=== PATIENT | female | born 1985 | race Caucasian/White ===

== ENCOUNTER 2018-05-28 04:24 | Emergency (ER) | payer OTHER ==
[~2018-05-28] VITALS: Ht 170.2 cm; Wt 68.0 kg
[2018-05-28 04:33] VITALS: BP_SYST 145
--- NOTE | 2018-05-28 05:43 | NUR ---
Pt c/o Right wrist pain since Sunday, progressively worsening. Pt states that she thinks she may have picked up her son the wrong way while at the [facility] this past Sunday. Mild swelling noted to lateral right wrist, no deformities noted. Pt able to open and close hand, wiggle fingers without difficulty, but more painful when attempting to move hand from side to side about wrist. No bruising or obvious trauma noted. Cap refil < 3 sec to nail beds.
--- NOTE | 2018-05-28 05:43 | NUR ---
0543 - Patient to ER bed 6 for evaluation. Side rails up. Report given to ALBERTA Del Rio.
--- NOTE | 2018-05-28 05:55 | NUR ---
Dr. Suh at bedside.
[2018-05-28] MEDS ORDERED: KETOROLAC TROMETHAMINE 30 MG VIAL IM ONE (07:00)
--- NOTE | 2018-05-28 07:20 | NUR ---
Velcro wrist splint applied to Right wrist, non-constrictive, cap refil < 3 sec to nail beds.
[2018-05-28 07:24] VITALS: BP_SYST 128
--- NOTE | 2018-05-28 07:25 | NUR ---
Patient given written and verbal discharge instructions and verbalizes understanding. ER MD discussed with patient the results and treatment provided. Patient in stable condition. ID arm band removed. Rx of Motrin given. Patient educated on pain management and to follow up with PMD. Pain Scale 4/10, medicated prior to discharge. Opportunity for questions provided and answered. Medication side effect fact sheet provided.
== END 2018-05-28 07:25 | disposition home or self-care (01) ==
LOC: SED 04:24
DX: M65.4 Radial styloid tenosynovitis [de Quervain] (principal); X50.0XXA Overexertion from strenuous movement or load, initial encounter; Y93.89 Activity, other specified; Y92.89 Other specified places as the place of occurrence of the external cause; Y99.8 Other external cause status
CPT/HCPCS: 29125; 73110; 96372; 99283; J1885

== ENCOUNTER 2021-07-06 12:38 | Inpatient (IN) | payer BC, MEDICAID, SELFPAY ==
[~2021-07-06] VITALS: Ht 170.2 cm; Wt 86.2 kg
--- NOTE | 2021-07-06 13:02 | NUR ---
Patient to ER bed 02 to gown for evaluation. Side rails up.
[2021-07-06 13:03] VITALS: BP_SYST 149
--- NOTE | 2021-07-06 13:10 | NUR ---
MD OBRIEN AT BEDSIDE WITH PATIENT.
--- NOTE | 2021-07-06 13:20 | NUR ---
patient AAOx4 c/o epigastric pain since 299 today. stating having some nausea. denies any changes in her diet. remains afebrile. denies any SOB or CP. abdomen soft and non-tender.
[2021-07-06] MEDS ORDERED: ONDANSETRON HCL 4 MG/2 ML VIAL IVP ONE (13:30)
[2021-07-06] MEDS ORDERED: NACL 0.9% 1,000 ML IV ONE (13:30)
[2021-07-06] MEDS ORDERED: PANTOPRAZOLE SODIUM 40 MG/VIAL (PROTONIX) IVP ONE (13:30)
[2021-07-06 13:39] LABS: BILIRUBIN,URINE NEGATIVE (NEGATIVE); BLOOD, URINE 1+ (NEGATIVE); CLARITY/URINE CLEAR (CLEAR); COLOR,URINE YELLOW (YELLOW); GLUCOSE,URINE NEGATIVE (NEGATIVE); KETONES,URINE NEGATIVE (NEGATIVE); LEUKOCYTE ESTERASE ,URINE NEGATIVE (NEGATIVE); NITRITE, URINE NEGATIVE (NEGATIVE); PH,URINE 6.5 (5.0-8.0); PROTEIN URINE NEGATIVE (NEGATIVE); UROBILINOGEN,URINE 0.2 (0.2-1.0)
[2021-07-06 13:53] LABS: BASOPHILS # (AUTO) 0.1 K/uL (0.0-0.2); BASOPHILS % (AUTO) 0.5 % (0.0-2.0); LYMPHOCYTES # (AUTO) 0.5 K/uL (1.0-5.5)
[2021-07-06 13:56] LABS: HEMATOCRIT 45.9 % (36-48); HEMOGLOBIN 16.2 g/dL (12.0-16.0); LYMPHOCYTES % (AUTO) 3.7 % (20.5-51.5); MEAN CORPUSCULAR HEMOGLOBIN 35 pg (27-31); MEAN CORPUSCULAR HGB CONC 35 % (32-36); MEAN CORPUSCULAR VOLUME 99 fL (79.0-98.0); MONOCYTES # (AUTO) 0.4 K/uL (0.0-1.0); MONOCYTES % (AUTO) 3.5 % (1.7-9.3); NEUTROPHILS # (AUTO) 11.2 K/uL (1.8-7.7); NEUTROPHILS % (AUTO) 92.3 % (40.0-70.0); RED BLOOD CELL COUNT(AUTO) 4.64 MIL/uL (4.2-6.2); RED CELL DISTRIBUTION WIDTH 12.9 % (9.0-15.0); WHITE BLOOD COUNT (AUTO) 12.1 K/uL (4.8-10.8)
[2021-07-06 14:09] LABS: PLATELET COUNT (AUTO) 184 K/uL (130-430)
[2021-07-06 14:13] LABS: WBC,URINE 0-3 /HPF (0-3)
[2021-07-06 14:14] LABS: BACTERIA,URINE FEW /HPF (None Seen)
[2021-07-06] MEDS ORDERED: MORPHINE 4 MG INJ. 4 MG/ML VIAL IVP ONE (14:15)
[2021-07-06 14:57] LABS: CALCIUM 7.9 mg/dL (8.4-11.0); CREATININE 1.01 mg/dL (0.55-1.30); POTASSIUM 3.8 mmol/L (3.5-5.1)
[2021-07-06 15:02] LABS: ALBUMIN 3.3 g/dL (3.4-4.8)
[2021-07-06] MEDS ORDERED: MORPHINE 4 MG INJ. 4 MG/ML VIAL IVP PRN (16:00)
--- NOTE | 2021-07-06 16:06 | NUR ---
Patient will be admitted to [facility]. Admitted to Tele unit. Will go to room pending room assignment.
--- NOTE | 2021-07-06 16:07 | NUR ---
Admit bed requested Patient will be admitted to care of Dr. CORTEZ. Admitted to TELE unit. Diagnosis ABDOMINAL PAIN AND PANCREATITIS Inpatient (Yes or No) YES Observation (Yes or No) NO Orientation concerns or request close to nursing station (Yes or No) NO Covid Status PENDING On vent or bipap NO Isolation requirements NO Needs a sitter NO From Home (Yes or if No enter name of facility) YES Requires Dialysis (Yes or No) NO Med Rec Completed (Yes of No) YES
[2021-07-06] MEDS: MORPHINE 4 MG INJ. 4 MG/ML VIAL IVP PRN (16:36)
--- NOTE | 2021-07-06 16:58 | NUR ---
BELONGINGS DONE AT BEDSIDE WITH PATIENT AND EMT.
--- NOTE | 2021-07-06 16:58 | NUR ---
PATIENT TAKES NO HOME MEDICATIONS.
[2021-07-06] MEDS: ONDANSETRON HCL 4 MG/2 ML VIAL IVP PRN (17:41)
--- NOTE | 2021-07-06 17:47 | NUR ---
Transfer to TELE via ACLS protocol. Licensed nurse present. IV present no signs or symptoms of infiltration.
[2021-07-06] MEDS ORDERED: cefTRIAXone 1 GM IVPB PREMIX 50 ML IV SCH (18:00)
[2021-07-06 18:30] VITALS: BP_SYST 140
[2021-07-06 18:54] VITALS: BP_SYST 140
[2021-07-06 18:57] VITALS: BP_SYST 140
[2021-07-06] MEDS ORDERED: cefTRIAXone 1 GM IVPB PREMIX 100 ML IV ONE (21:44)
--- NOTE | 2021-07-06 23:50 | NUR ---
CONSULT: CONSULT CALLED FOR DR. BARBARA FALCON CARTON FILLING MACHINE OPERATOR THIS MORNING I SPOKE WITH BELA PATEL REASON FOR CONSULT: PANCREATITIS REQUESTING CONSULT: DR. CORTEZ ETL DEVELOPER PHONE NUMBER: [phone]
[2021-07-07 00:57] VITALS: BP_SYST 135
[2021-07-07] MEDS: D5/0.45 NS 1,000 ML IV SCH ×2 (04:36→12:15)
[2021-07-07 06:13] LABS: BASOPHILS % (AUTO) 0.5 % (0.0-2.0); EOSINOPHILS % (AUTO) 0.2 % (0.0-4.0); HEMATOCRIT 44.8 % (36-48); LYMPHOCYTES # (AUTO) 0.6 K/uL (1.0-5.5); LYMPHOCYTES % (AUTO) 7.5 % (20.5-51.5); MEAN CORPUSCULAR HEMOGLOBIN 34 pg (27-31); MEAN CORPUSCULAR HGB CONC 34 % (32-36); MEAN CORPUSCULAR VOLUME 100 fL (79.0-98.0); MONOCYTES # (AUTO) 0.3 K/uL (0.0-1.0); MONOCYTES % (AUTO) 3.1 % (1.7-9.3); NEUTROPHILS # (AUTO) 7.3 K/uL (1.8-7.7); NEUTROPHILS % (AUTO) 88.7 % (40.0-70.0); PLATELET COUNT (AUTO) 109 K/uL (130-430); RED BLOOD CELL COUNT(AUTO) 4.47 MIL/uL (4.2-6.2); RED CELL DISTRIBUTION WIDTH 13.3 % (9.0-15.0); WHITE BLOOD COUNT (AUTO) 8.3 K/uL (4.8-10.8)
[2021-07-07 06:42] LABS: CREATININE 0.99 mg/dL (0.55-1.30); POTASSIUM 3.3 mmol/L (3.5-5.1)
[2021-07-07 06:49] LABS: ALBUMIN 2.7 g/dL (3.4-4.8); TOTAL BILIRUBIN 0.9 mg/dL (0.0-1.0)
[2021-07-07 08:00] VITALS: BP_SYST 124
--- NOTE | 2021-07-07 08:00 | NUR ---
CRITICAL LAB RESULTS CALCIUM LEVEL 6.8 PRIMARY MD MADE AWARE.
[2021-07-07] MEDS: MORPHINE 2 MG/ML INJ. SYRINGE IVP PRN ×2 (08:30→16:28)
[2021-07-07] MEDS: ONDANSETRON HCL 4 MG/2 ML VIAL IVP PRN ×2 (08:42→20:56)
[2021-07-07 09:12] LABS: CALCIUM 6.8 mg/dL (8.4-11.0)
--- NOTE | 2021-07-07 10:30 | NUR ---
CRITICAL LAB RESULT LIPASE 3780 DECREASING AT THIS TIME,
--- NOTE | 2021-07-07 11:29 | NUR ---
CALLED IN REGARDS PT SCHEDULED FOR MRI TODAY,
--- NOTE | 2021-07-07 11:30 | NUR ---
PT ON MENSTRUAL CYCLE AT THIS TIME, PT SURE SHE IS NOT ,
--- NOTE | 2021-07-07 11:32 | NUR ---
PT SCHEDULED FOR TEST
[2021-07-07] MEDS ORDERED: HYDROmorphone 1 MG/ML INJ. CARTRIDGE IM PRN (12:30)
--- NOTE | 2021-07-07 13:00 | NUR ---
REGISTERED NURSE CARDIAC TELEMETRY AT BEDSIDE TO TRANSPORT PT TO RADIOLOGY DEPT.
--- NOTE | 2021-07-07 13:59 | NUR ---
PT RETURNED FROM MRI DEPT.
[2021-07-07] MEDS ORDERED: DIATR MEGLU/DIATRIZ SOD 30 ML SOLUTION PO ONE (15:12)
[2021-07-07 16:00] VITALS: BP_SYST 147
--- NOTE | 2021-07-07 19:00 | NUR ---
OPENING NOTES RECEIVED PATIENT RESTING, NO SIGNS OF PAIN AT THIS TIME. CALL LIGHT WITHIN REACH, PATIENT ABLE TO DEMONSTRATE CALL LIGHT USAGE, BED ALARM REFUSED AT THIS TIME, BED ALARM TEACHING PROVIDED, BED AT LOWEST POSITION, BED LOCKED. FALL, SAFETY, ASPIRATION, AND RESPIRATORY PRECAUTIONS IN PLACE. DISCUSSED PLAN OF CARE WITH PATIENT. WILL CONTINUE TO MONITOR.
--- NOTE | 2021-07-07 19:30 | NUR ---
PT STABLE VSS NO DISTRESS NOTED, PT SLEEPING ON INTERVALS PT CALM
[2021-07-07 20:00] VITALS: BP_SYST 127
[2021-07-07] MEDS: cefTRIAXone 1 GM IVPB PREMIX 50 ML IV SCH (20:56)
--- NOTE | 2021-07-07 22:00 | NUR ---
TRANSFER OF CARE SBAR PROVIDED TO ALBERTA COURTNEY. CALL LIGHT WITHIN REACH, BED AT LOWEST POSITION. BED LOCKED.
--- NOTE | 2021-07-07 22:00 | NUR ---
[facility] of care Received report sandra Hartley RN via SBAR. Resting quietly alert & oriented. No c/o pain or discomfort. Able to use call light if in need of assistance. Bed in low, locked position.
[2021-07-08 00:46] VITALS: BP_SYST 120
[2021-07-08] MEDS: MORPHINE 4 MG INJ. 4 MG/ML VIAL IVP PRN ×3 (00:55→15:21)
--- NOTE | 2021-07-08 01:00 | NUR ---
Pain. C/O headache 11/16. VSS. Morphine IV given as ordered. Instructed to call for assistance if needed and not to ambulate if unsteady. Verbalized understanding. Call light within reach.
[2021-07-08 01:13] VITALS: BP_SYST 120
[2021-07-08] MEDS: D5/0.45 NS 1,000 ML IV SCH (03:56)
--- NOTE | 2021-07-08 04:40 | NUR ---
Sleeping quietly, no apparent distress. No c/o pain or discomfort. No respiratory distress noted. Call light within reach.
[2021-07-08 07:11] LABS: BASOPHILS % (AUTO) 0.4 % (0.0-2.0); EOSINOPHILS # (AUTO) 0.1 K/uL (0.0-0.4); EOSINOPHILS % (AUTO) 0.9 % (0.0-4.0); HEMATOCRIT 40.3 % (36-48); HEMOGLOBIN 13.5 g/dL (12.0-16.0); LYMPHOCYTES # (AUTO) 0.7 K/uL (1.0-5.5); LYMPHOCYTES % (AUTO) 8.4 % (20.5-51.5); MEAN CORPUSCULAR HEMOGLOBIN 33 pg (27-31); MEAN CORPUSCULAR HGB CONC 34 % (32-36); MEAN CORPUSCULAR VOLUME 100 fL (79.0-98.0); MONOCYTES # (AUTO) 0.3 K/uL (0.0-1.0); MONOCYTES % (AUTO) 4.1 % (1.7-9.3); NEUTROPHILS # (AUTO) 6.9 K/uL (1.8-7.7); NEUTROPHILS % (AUTO) 86.2 % (40.0-70.0); PLATELET COUNT (AUTO) 97 K/uL (130-430); RED BLOOD CELL COUNT(AUTO) 4.04 MIL/uL (4.2-6.2); RED CELL DISTRIBUTION WIDTH 13.5 % (9.0-15.0)
--- NOTE | 2021-07-08 07:32 | NUR ---
Closing note. Resting quietly, no apparent distress. No c/o of pain or discomfort. Able to ambulate to bathroom without assist. Call light within reach. Will give report to oncoming shift RN.
[2021-07-08 08:00] VITALS: BP_SYST 115
[2021-07-08 08:19] LABS: ALBUMIN 2.2 g/dL (3.4-4.8); CREATININE 0.75 mg/dL (0.55-1.30); POTASSIUM 3.2 mmol/L (3.5-5.1)
[2021-07-08 11:28] VITALS: BP_SYST 112
--- NOTE | 2021-07-08 13:07 | NUR ---
HIGH ALERT NOTE: Called Dr. CORTEZ back at [phone] identified within the medical roster to verify physician authenticity.
[2021-07-08] MEDS ORDERED: POTASSIUM CHLORIDE 40 MEQ, LIDOCAINE JECT 2% PF 100 MG 50 MG in NS 250 ML IV ONE (14:00)
[2021-07-08 15:38] VITALS: BP_SYST 120
--- NOTE | 2021-07-08 20:02 | NUR ---
Received pt lying in bed aaox4, no distress noted, denies pain. VSS Addendum: 07/09/21 at 0714 by [facility] acoustical engineer [id number]: PT LYING IN BED, NO DISTRESS NOTED, DENIES PAIN. UNEVENTFUL SHIFT.
[2021-07-08] MEDS: cefTRIAXone 1 GM IVPB PREMIX 50 ML IV SCH (22:04)
[2021-07-08 23:27] VITALS: BP_SYST 114
[2021-07-09] MEDS: MORPHINE 4 MG INJ. 4 MG/ML VIAL IVP PRN (02:35)
[2021-07-09 04:30] VITALS: BP_SYST 116
[2021-07-09] MEDS: D5/0.45 NS 1,000 ML IV SCH (07:56)
--- NOTE | 2021-07-09 07:56 | NUR ---
rn opening note report was endorsed by night nurse. patient is awake and alert sitting up in bed. no complaints at this time. states her abdominal pain is better just swollen. patient is still npo. patient educated rehabilitation physician light for assistance. call light is with her. patient has no other needs at this time.
[2021-07-09 07:59] VITALS: BP_SYST 129
[2021-07-09 09:03] LABS: HCG,QUAL RESULT NEGATIVE (NEGATIVE)
[2021-07-09] MEDS ORDERED: NALOXONE HCL 0.4 MG/ML AMP (NARCAN) IVP PRN (09:30)
--- NOTE | 2021-07-09 10:00 | NUR ---
rn rounding patient is sitting up in bed, no complaints at this time. call light is with her. educated to use for assistance. no other needs at this time.
[2021-07-09 11:21] VITALS: BP_SYST 118
--- NOTE | 2021-07-09 11:50 | NUR ---
Dr. Carrington spoke with md orders were received
[2021-07-09] MEDS: ACETAMINOPHEN 325 MG TABLET PO PRN ×2 (13:09→20:39)
--- NOTE | 2021-07-09 13:10 | NUR ---
headache Addendum: 07/09/21 at 1416 by Crystal Maharaj RN patient complains of head ache medicated per order. patient educated vice president industrial relations light for assistance. call light is with her. patient has no other needs at this time. patient states she was able to eat just feels like she ate too fast.
--- NOTE | 2021-07-09 15:11 | NUR ---
RN ROUNDING PATIENT STATES SHE HAS A HAD BOWEL MOVEMENT, NO ABDOMINAL PAIN. TOLERATED LUNCH WELL. OK TO ADVANCE DIET PER ORDER. PATIENT HAS CALL LIGHT WITH HER EDUCATED TO USE FOR ASSISTANCE. NO OTHER NEEDS AT THIS TIME.
[2021-07-09 15:21] VITALS: BP_SYST 129
--- NOTE | 2021-07-09 19:33 | NUR ---
rn closing note report was endorsed to night nurse. patient ate dinner has no complaints at this time. call light is with her. educated to use for assistance. patient does not complain of nausea, no pain at this time.
[2021-07-09 20:00] VITALS: BP_SYST 138
[2021-07-09 20:10] VITALS: BP_SYST 138
--- NOTE | 2021-07-09 20:10 | NUR ---
PM ASSESSMENT -pt is a/ox4, laying in bed comfortably. VSS. Pt denies any pain,sob,or any acute distress. IVF infusing well, no s/s any infiltration noted. Discussed poc,all safety measures, pt verbalized understanding. Call light w/in reach. All safety measure in place. Continuing to monitor pt.
[2021-07-09] MEDS: cefTRIAXone 1 GM IVPB PREMIX 50 ML IV SCH (20:39)
--- NOTE | 2021-07-09 20:39 | NUR ---
PAIN MGMT -Pt is c/o headache,gave Tylenol po upon pt's request. Will reassess pain level w/in an hour. Continuing to monitor pt.
--- NOTE | 2021-07-09 21:39 | NUR ---
REASSESSMENT OF PAIN -pt is laying in bed comfortably.IVF infusing well, no s/s any infiltration. No s/s any pain,sob,or any acute distress noted. Call light w/in reach. All safety measures in place. Continuing to monitor pt.
[2021-07-09] MEDS: ONDANSETRON HCL 4 MG/2 ML VIAL IVP PRN (23:57)
--- NOTE | 2021-07-09 23:57 | NUR ---
ROUNDS; -pt is denies pain,sob except cramping of abdomen. Gave Zofran 4mg IVP upon pt's request. VSS. Call light w/in reach. All safety measures in place. Continuing to monitor pt.
[2021-07-10] VITALS: BP_SYST 139
[2021-07-10] MEDS: D5/0.45 NS 1,000 ML IV SCH (02:07)
[2021-07-10] MEDS: HYDROcodone/ACETAMIN 5-325 MG TAB (NORCO/ VICODIN) PO PRN ×2 (02:07→09:45)
--- NOTE | 2021-07-10 02:07 | NUR ---
ROUNDS & PAIN MGMT -pt is crying and c/o abdominal pain 10/10,gave [place] 5/325mg po upon pt's request. Pt refused to take Morphine IVP. Call light w/in reach. All safety measures in place. Will reassess pain level w/in 1 hr and continuing to monitor pt.
--- NOTE | 2021-07-10 04:10 | NUR ---
ROUNDS; -Pt is asleep, no s/s any pain or any acute distress noted. IVF infusing well. Call light w/in reach. All safety measures in place. Continuing to monitor pt
--- NOTE | 2021-07-10 06:54 | NUR ---
CLOSING NOTES; -Pt awoke upon making final rounds. Pt stated that [place] po helped her pain much better than Tylenol po for pain mgmt. IV site patent, no s/s any infiltration noted. IVF infusing well. Call light w/in reach. All safety measures in place. Will endorse to next nurse to cont care.
[2021-07-10 08:00] VITALS: BP_SYST 143
[2021-07-10 11:28] VITALS: BP_SYST 139
[2021-07-10 14:00] VITALS: BP_SYST 140
--- NOTE | 2021-07-10 14:52 | NUR ---
Obtained order to d/c pt home, pt ambulating in the room, tolerating soft diet well, norco 1 tab given early with good response. Reviewed d/c instructions and pt verbalized understanding. d/c 'd iv site. all belongings given to pt. VSS. prescription to be called in by Dr Carrington to pt's [facility] pharmacy per Dr Carrington. pt verbalized understanding of prescription. escorted out via wheelchair.
--- NOTE | 2021-07-10 16:38 | NUR ---
prescription Dr Carrington can only do electronic prescription for [facility] tomorrow 07/11 at 10am. Patient called and notified and advised patient if symptom persist, to seek medical help
[2021-07-11 08:06] LABS: ANTI NUCLEAR AB WITH REFLEX Negative (Negative)
== END 2021-07-10 15:05 | disposition home or self-care (01) | DRG 440 ==
LOC: SED 12:38 → STU 16:10 → SMU 07-08 12:52
PROVIDERS: ADMIT Internal Medicine; ATTEND Internal Medicine
DX: K85.90 Acute pancreatitis without necrosis or infection, unspecified (principal); Z20.822 Contact with and (suspected) exposure to COVID-19; F10.20 Alcohol dependence, uncomplicated; K59.00 Constipation, unspecified; Z80.3 Family history of malignant neoplasm of breast; Z79.899 Other long term (current) drug therapy; Z56.0 Unemployment, unspecified
CPT/HCPCS: 36415; 74181; 76376; 76700-TC; 80053; 80061; 81000; 82150; 82787; 83036; 83690; 84703; 85025; 86038; 96374; 96375; 99285; C9113; G0378; J0696; J2270; J2405; J3480; J7050; Q9964

== ENCOUNTER 2022-03-19 00:37 | Emergency (ER) | payer BC, MEDICAID ==
[~2022-03-19] VITALS: Ht 170.2 cm; Wt 81.6 kg
[~2022-03-19 00:37] MED LIST: IBUP-1969 PO; PSEU30TA36 PO
[2022-03-19 00:52] VITALS: BP_SYST 138
--- NOTE | 2022-03-19 00:52 | NUR ---
Patient came in to the emergency department with complains of high BP of 175/100's at home. Patient reports she took her BP medicine, amlodipine 5 mg at 1900 hrs. Patient reports being anxious because her family has history of heart attack and strokes and is scared for herself. Patients heart rate is elevated, BP is down to 138/95 mmHg. Patient afebrile, no other remarkable symptoms noted.
[2022-03-19] MEDS ORDERED: AMLO5TAB4 PO ×2 (00:56→01:13)
--- NOTE | 2022-03-19 00:58 | NUR ---
tPatient triaged and placed in waiting room. VS checked and patient appears in no acute distress at this time. Accompanied by self, awaiting available bed, and MD notified of need for MSE.
--- NOTE | 2022-03-19 01:03 | NUR ---
Patient ambulatory to bed hallway 1 for evaluation
--- NOTE | 2022-03-19 01:05 | NUR ---
ER at bedside examining patient.
[2022-03-19] MEDS ORDERED: VIS25 PO (01:13)
[2022-03-19] MEDS ORDERED: LORazepam 1 MG TABLET PO ONE (01:15)
[2022-03-19 01:36] VITALS: BP_SYST 138
--- NOTE | 2022-03-19 01:36 | NUR ---
Patient given written and verbal discharge instructions and verbalizes understanding. ER MD discussed with patient the care provided. Patient in stable condition. Rx of Amlodipine and vistaril/Atarax given. Patient educated on medicines and to follow up with PMD. Opportunity for questions provided and answered.
== END 2022-03-19 01:36 | disposition home or self-care (01) ==
LOC: SED 00:37
DX: I10 Essential (primary) hypertension (principal); F41.9 Anxiety disorder, unspecified; R06.02 Shortness of breath; Z79.899 Other long term (current) drug therapy
CPT/HCPCS: 99283

== ENCOUNTER 2023-05-04 15:56 | Inpatient (IN) | payer BC, MEDICAID ==
[~2023-05-04] VITALS: Ht 170.2 cm; Wt 74.4 kg
[~2023-05-04 15:56] MED LIST changes: +AMLO5TAB4 PO; +VIS25 PO
[2023-05-04 16:27] VITALS: BP_SYST 143; PULSE 109; RESP 20; TEMP 98.1; O2SAT 98
[2023-05-04 18:21] LABS: BASOPHILS % (AUTO) 0.3 % (0.0-2.0); EOSINOPHILS % (AUTO) 0.1 % (0.0-4.0); LYMPHOCYTES # (AUTO) 0.4 K/uL (1.0-5.5); LYMPHOCYTES % (AUTO) 5.3 % (20.5-51.5); MEAN CORPUSCULAR HEMOGLOBIN 35 pg (27-31); MEAN CORPUSCULAR HGB CONC 35 % (32-36); MEAN CORPUSCULAR VOLUME 99 fL (79.0-98.0); MONOCYTES # (AUTO) 0.4 K/uL (0.0-1.0); MONOCYTES % (AUTO) 5.2 % (1.7-9.3); NEUTROPHILS # (AUTO) 7.4 K/uL (1.8-7.7); NEUTROPHILS % (AUTO) 89.1 % (40.0-70.0); PLATELET COUNT (AUTO) 131 K/uL (130-430); RED BLOOD CELL COUNT(AUTO) 4.35 MIL/uL (4.2-6.2); RED CELL DISTRIBUTION WIDTH 15.5 % (9.0-15.0); WHITE BLOOD COUNT (AUTO) 8.4 K/uL (4.8-10.8)
[2023-05-04 18:34] LABS: BILIRUBIN,URINE 3+ (NEGATIVE); BLOOD, URINE 1+ (NEGATIVE); CLARITY/URINE SL CLOUDY (CLEAR); COLOR,URINE YELLOW (YELLOW); GLUCOSE,URINE NEGATIVE (NEGATIVE); KETONES,URINE 3+ (NEGATIVE); LEUKOCYTE ESTERASE ,URINE NEGATIVE (NEGATIVE); NITRITE, URINE NEGATIVE (NEGATIVE); PH,URINE 6.5 (5.0-8.0); PROTEIN URINE 2+ (NEGATIVE)
[2023-05-04 18:36] LABS: PROTHROMBIN TIME 10.7 SECS (9.5-12.5)
[2023-05-04 18:41] LABS: ALANINE AMINOTRANSFERASE 127 U/L (12-78); ALBUMIN 3.8 g/dL (3.4-4.8); ANION GAP 14 (5-15); ASPARTATE AMINOTRANSFERASE 157 U/L (10-37); CALCIUM 8.7 mg/dL (8.4-11.0); CARBON DIOXIDE 24 mmol/L (23-29); CHLORIDE 97 mmol/L (98-107); CREATININE 0.77 mg/dL (0.55-1.30); GFR AFRICAN AMERICAN 107 mL/min (>90); GLUCOSE 136 mg/dL (74-106); POTASSIUM 3.8 mmol/L (3.5-5.1); SODIUM SERUM 135 mmol/L (136-145); TOTAL BILIRUBIN 2.3 mg/dL (0.0-1.0); TOTAL PROTEIN, SERUM 7.8 g/dL (6.4-8.3); UREA NITROGEN, BLOOD 9 mg/dL (8-21)
[2023-05-04 18:43] LABS: SERUM HCG (QUALITATIVE) NEGATIVE (NEGATIVE)
[2023-05-04 18:49] LABS: GFR NON AFRICAN-AMERICAN 89 mL/min (>90)
[2023-05-04 19:05] LABS: BACTERIA,URINE FEW /HPF (None Seen); CALCIUM OXALATE CRYSTALS,UR None Seen /HPF (None Seen); CALCIUM PHOSPHATE CRYSTALS,UR None Seen /HPF (None Seen); COARSE GRANULAR CASTS,URINE None Seen /LPF (None Seen); FINE GRANULAR CASTS,URINE None Seen /LPF (None Seen); HYALINE CASTS, URINE None Seen /LPF (None Seen); MUCUS,URINE None Seen /LPF (None Seen); OTHER CASTS, URINE None Seen /LPF (None Seen); OTHER CRYSTALS,URINE None Seen /HPF (None Seen); RBC,URINE NONE SEEN /HPF (0-3); TRICHOMONAS,URINE None Seen /HPF (None Seen); TRIPLE PHOSPHATE CRYSTAL,UR None Seen /HPF (None Seen); URIC ACID CRYSTALS,URINE None Seen /HPF (None Seen); URINE AMORPHOUS PHOSPHATES None Seen /HPF (None Seen); URINE AMORPHOUS URATE None Seen /HPF (None Seen); WAXY CASTS,URINE None Seen /LPF (None Seen); WBC,URINE NONE SEEN /HPF (0-3); YEAST,URINE Few /HPF (None Seen)
[2023-05-04 19:22] LABS: AMYLASE 316 U/L (0-100); BILIRUBIN,DIRECT 0.9 mg/dL (0.0-0.3); LACTATE DEHYDROGENASE 226 U/L (81-234); LIPASE 1089 U/L (16-77)
[2023-05-04] MEDS ORDERED: MORPHINE 2 MG/ML INJ. SYRINGE IVP ONE (19:45)
[2023-05-04] MEDS ORDERED: ONDANSETRON HCL 4 MG/2 ML VIAL IVP ONE (19:45)
[2023-05-04 20:16] LABS: ACETONE, SERUM NEGATIVE (NEGATIVE)
[2023-05-04] MEDS ORDERED: D5/0.45 NS 1,000 ML IV ONE (23:30)
[2023-05-05] MEDS ORDERED: NALOXONE HCL 0.4 MG/ML AMP (NARCAN) IVP PRN (09:30)
[2023-05-05] MEDS ORDERED: FOLIC ACID 1 MG, THIAMINE HCL 100 MG, MAGNESIUM SULFATE 1 GM, MVI 10 ML in NACL 0.9% 1,... IV SCH (09:30)
[2023-05-05] MEDS ORDERED: MORPHINE 4 MG INJ. 4 MG/ML VIAL IVP PRN (09:30)
[2023-05-05] MEDS ORDERED: ONDANSETRON HCL 4 MG/2 ML VIAL IVP PRN (09:30)
[2023-05-05] MEDS ORDERED: MORPHINE 2 MG/ML INJ. SYRINGE IVP PRN (09:30)
[2023-05-05] MEDS ORDERED: LORazepam 2 MG/ML VIAL IVP PRN (09:30)
[2023-05-05 10:43] LABS: BASOPHILS % (AUTO) 0.7 % (0.0-2.0); EOSINOPHILS # (AUTO) 0.1 K/uL (0.0-0.4); EOSINOPHILS % (AUTO) 0.9 % (0.0-4.0); HEMATOCRIT 41.4 % (36-48); HEMOGLOBIN 14.3 g/dL (12.0-16.0); LYMPHOCYTES # (AUTO) 0.5 K/uL (1.0-5.5); MEAN CORPUSCULAR HEMOGLOBIN 34 pg (27-31); MEAN CORPUSCULAR HGB CONC 35 % (32-36); MEAN CORPUSCULAR VOLUME 99 fL (79.0-98.0); MONOCYTES # (AUTO) 0.4 K/uL (0.0-1.0); MONOCYTES % (AUTO) 6.5 % (1.7-9.3); NEUTROPHILS % (AUTO) 83.9 % (40.0-70.0); PLATELET COUNT (AUTO) 103 K/uL (130-430); RED BLOOD CELL COUNT(AUTO) 4.19 MIL/uL (4.2-6.2); WHITE BLOOD COUNT (AUTO) 5.9 K/uL (4.8-10.8)
[2023-05-05 10:59] LABS: BARBITURATE, URINE NEGATIVE (NEG <=200); BENZODIAZEPINE, URINE NEGATIVE (NEG <=150); CANNABINOID, URINE NEGATIVE (NEG <=50); COCAINE, URINE NEGATIVE (NEG <=150); METHAMPHETAMINES SCREEN,URINE NEGATIVE (NEG <=500); OPIATE, URINE NEGATIVE (NEG <=100); PHENCYCLIDINE SCREEN,URINE NEGATIVE (NEG <=25); UR TRICYCLIC ANTIDEPRESSANTS NEGATIVE (NEG <=300); URINE AMPHETAMINE NEGATIVE (NEG <=500); URINE METHADONE NEGATIVE (NEG <=200); URINE OXYCODONE SCREEN NEGATIVE (NEG <=100)
[2023-05-05 11:00] LABS: ALBUMIN 3.4 g/dL (3.4-4.8); CALCIUM 9.4 mg/dL (8.4-11.0); CREATININE 0.69 mg/dL (0.55-1.30); POTASSIUM 3.4 mmol/L (3.5-5.1); TOTAL PROTEIN, SERUM 7.2 g/dL (6.4-8.3)
[2023-05-05] MEDS ORDERED: THIAMINE HCL 100 MG, MAGNESIUM SULFATE 1 GM in NS 100 ML IV SCH (11:00)
[2023-05-05 12:09] VITALS: BP_SYST 143; PULSE 81; RESP 18; TEMP 98.1; O2SAT 98
[2023-05-05 12:13] VITALS: BP_SYST 142; PULSE 81; RESP 18; TEMP 98.1
[2023-05-05 12:31] VITALS: O2SAT 98
[2023-05-05] MEDS ORDERED: NORMAL SALINE 5 ML DISP.SYRIN IVF SCH (14:00)
[2023-05-05] MEDS ORDERED: KETOROLAC TROMETHAMINE 30 MG VIAL IVP PRN (14:15)
[2023-05-05] MEDS: FOLIC ACID 1 MG, MVI 10 ML in NACL 0.9% 1,000 ML IV SCH ×2 (14:25→14:26)
[2023-05-05 16:00] VITALS: BP_SYST 140; PULSE 78; RESP 17; TEMP 98; O2SAT 98
[2023-05-05] MEDS ORDERED: KCL 40 mEq in 100 mL (PREMIX) 100 ML IV ONE (16:45)
[2023-05-05] MEDS ORDERED: POTASSIUM CHLORIDE 20 mEq in 100 mL (PREMIX) 100 ML x 2 doses IV SCH (17:00)
== END 2023-05-05 17:57 | disposition left against medical advice (07) | DRG 282 ==
LOC: SED 15:56 → SMU 23:27
PROVIDERS: ADMIT Preventive Medicine Preventive Medicine/Occupational Environmental Medicine; ATTEND Preventive Medicine Preventive Medicine/Occupational Environmental Medicine
DX: K85.90 Acute pancreatitis without necrosis or infection, unspecified (principal); E88.09 Other disorders of plasma-protein metabolism, not elsewhere classified; E87.1 Hypo-osmolality and hyponatremia; I10 Essential (primary) hypertension; R73.9 Hyperglycemia, unspecified; R74.01 Elevation of levels of liver transaminase levels; Z53.29 Procedure and treatment not carried out because of patient's decision for other reasons; Z79.899 Other long term (current) drug therapy
CPT/HCPCS: 36415; 76376; 80048; 80053; 80076; 80307; 81000; 81001; 81015; 82009; 82150; 83605; 83615; 83690; 84703; 85025; 85610-TC; 85730-TC; 96374; 99285; J3411; J3475; J3490; J7030